=== PATIENT | female | born 1980 | race Caucasian/White ===

== ENCOUNTER 2017-01-09 12:43 | Inpatient (IN) | payer OTHER, SELFPAY ==
[~2017-01-09 12:43] MED LIST: NAPR500T2 PO; NORCOTAB PO; VARENICLINE
[2017-01-09] MEDS ORDERED: REST30CA PO (13:54)
[2017-01-09] MEDS ORDERED: LAMI25TA PO (13:54)
[2017-01-09] MEDS ORDERED: TRAZ1TAB14 PO (13:54)
[2017-01-09] MEDS ORDERED: traZODone 50 MG TAB PO ONE (20:15)
[2017-01-10] MEDS ORDERED: CALC500T49 PO (12:41)
[2017-01-10] MEDS ORDERED: POTA99TA PO (12:41)
[2017-01-10] MEDS ORDERED: IRON65TA PO (12:41)
[2017-01-10] MEDS ORDERED: EFFE37.527 PO (12:41)
[2017-01-10] MEDS ORDERED: MOM 30ML SUSPENSION UDC PO PRN (20:45)
[2017-01-10] MEDS ORDERED: POTASSIUM 99 MG PO SCH (21:00)
[2017-01-10] MEDS: FERROUS SULFATE 325MG TAB PO SCH (22:17)
[2017-01-10] MEDS: VENLAFAXINE **XR** 37.5 MG CAPSULE PO SCH (22:17)
[2017-01-10] MEDS: OYSTER SHELL CALCIUM 500 MG TAB PO SCH (22:28)
[2017-01-10] MEDS: traZODone 50 MG TAB PO PRN (22:45)
[2017-01-11 06:27] VITALS: BP 103/59
[2017-01-11] MEDS: NICOTINE 21MG/24HR 1 EA TRANSDERMAL TD SCH (08:31)
--- NOTE | 2017-01-11 10:21 | HPEPDOC ---
Medical History and Physical Date of Admission Jan 10, 2017 at 16:25 History and Physical PCP: Dr Tovar ATTENDING: Dr. David Jaramillo HPI: 36yoF admitted to COUNTS INCLUDE 234 BEDS AT THE [facility] for depressive disorder, being medically examined today. Patient was transferred from [facility] related to overdose of home medications 01/09/17, according to records it was unclear how many she took and what medications she had taken. Patient had also apparently consumed 2 wine coolers. No acute medical complaints today. Denies any fevers, chills, weakness, fatigue , HERRING, CP, SOB, cough, palpitations, abdominal pain, N/V/D or changes in bowel or bladder habits. PMHx: Anxiety Depression Insomnia Iron deficiency anemia History of obesity Asthma PSHX: Gastric bypass Right shoulder surgery 1 Lumbar laminectomy SOCHX: Resides in: [facility] Marital Status: , lives with significant other Kids: 2 biological children, 2 stepchildren and 2 foster children Employment: Unemployed Tobacco use: One pack per day ETOH: Once per month one to 2 drinks Illicit Drugs: Denies IV Drug Use: Denies Tattoos done unprofessionally: Denies FAMHX: Mother: , ovarian cancer Father: Alive, well Siblings: 3 sisters Alive, well Children: Alive, well Unexpected deaths due to medical reasons: None. ROS: As noted in HPI, otherwise 11pt ROS of systems reviewed and remarkable only for LMP unknown. PE: GEN: 36yoF, appears stated age. Well-nourished, well developed. No acute distress. Alert and oriented x 3. Pleasant, interactive. HEENT: Normocephalic, atraumatic. Pupils are equal, round, and reactive to light. Extraocular movements are intact. No nystagmus appreciated. Sclera are nonicteric. Conjunctiva without injection. Nose midline. Nasal turbinates without bogginess. EACs both patent BL. TMs both visualized and abernathy with good cone of light, no bulging or erythema. No facial asymmetry. Moist mucous membranes. Dentition fair. Pharynx pink and moist, no cobblestoning. Neck supple , trachea midline. No lymphadenopathy or thyromegaly appreciated. CHEST: Regular rate and rhythm, +S1, +S2 LUNGS: Clear to auscultation bilaterally. No wheezes, rales, or rhonchi. Breathing appears symmetric and easy. Patient is speaking in full sentences. No accessory muscle use. ABD: Round, soft, non-tender, non-distended. +Bowel sounds throughout. No rebound or guarding. No costovertebral angle tenderness. EXT: Pulses 2+ bilaterally dorsalis pedis and radial. No lower extremity edema appreciated. SKIN: [place], dry, warm. Capillary refill <2sec. No rashes. NEURO: Alert and oriented x 3. Cranial nerves III-XII are intact. No focal deficits appreciated. EKG: [facility] ST 101bpm. Labs [facility]. WBC 10.9 Hgb 13.9 HCT 42.0 PLT 246 BUN 15 SCr 0.70 Na 142 K 3.1 Cl 110 CO2 28 Gluc 118 ALT 12 AST 14 TSH 0.62 Hcg urine neg. UA unremarkable Toxicology remarkable for benzodiazepine Imaging [facility]: CXR NAD. CT head NAD. A&P: 36yoF admitted to COUNTS INCLUDE 234 BEDS AT THE [facility] for depressive disorder 1. Psych. Plan per Psychiatry. EKG on file. 2. Nicotine dependence. Patch available. 3. History of bariatric surgery. Continue calcium 500 mg at bedtime, potassium supplement 99 mg at bedtime. 4. Follow up with PCP on discharge. 5. History of iron deficiency anemia. Continue iron supplement 325 mg at bedtime. 6. Hypokalemia. Recheck CMP. Staff member Vicenta present throughout exam. Vital Signs Vital Signs Date Time Temp Pulse Resp B/P (MAP) Pulse Ox O2 Delivery O2 Flow Rate FiO2 01/11/17 08:43 Room Air 01/11/17 06:27 97.9 62 18 103/59 (74) 01/10/17 17:42 97 Home Medications Scheduled (Iron) 325 Mg Tab, 325 MG PO QHS Calcium (Calcium) 500 Mg Tab, 500 MG PO QHS Lamotrigine (Lamictal) 25 Mg Tab, 25 MG PO QHS Potassium (Potassium) 99 Mg Tab, 99 MG PO QHS Temazepam (Restoril) 30 Mg Cap, 30 MG PO QHS Trazodone HCl (Trazodone HCl) 150 Mg Tab, 150 MG PO QHS Venlafaxine Hydrochloride (Effexor Xr) 37.5 Mg Cap, 37.5 MG PO QHS Allergies Coded Allergies: No Known Drug Allergy (Verified Allergy, Unknown, 01/09/17) Kirti Torres Jan 11, 2017 10:21
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
[2017-01-11 18:06] VITALS: BP 126/67
[2017-01-11] MEDS ORDERED: TEMAZEPAM 15 MG CAP PO PRN (19:45)
[2017-01-11] MEDS: OYSTER SHELL CALCIUM 500 MG TAB PO SCH (21:58)
[2017-01-11] MEDS: VENLAFAXINE **XR** 37.5 MG CAPSULE PO SCH (21:58)
[2017-01-11] MEDS: FERROUS SULFATE 325MG TAB PO SCH (21:58)
[2017-01-11] MEDS: traZODone 50 MG TAB PO PRN (22:00)
[2017-01-11] MEDS: MAALOX 30 ML SUSP *UDC PO PRN (22:00)
[2017-01-12 06:36] VITALS: BP 105/59
--- NOTE | 2017-01-12 09:45 | MHIPNPDOC ---
[facility] Progress Note Progress Note DATE OF SERVICE: 01/12/17 HISTORY: Patient is a 36-year-old female who was transferred from [facility] after allegedly taking overdose of unknown quantity of 25 mg tablets of Lamictal in addition to other unknown psychiatric medications. ER report indicates that patient went out to smoke early Tuesday morning and when she came back was unsteady on her feet at which time her girlfriend contacted 911. Upon presenting to [facility] patient was complaining of dizziness and seeing double, indicated that she had been drinking and took unknown prescription medications to include: Trazodone, Tylenol, Pepcid, folate, misoprostol, simethicone, B12, Lamictal, Ambien. Patient also apparently texted that when released from the hospital she planned to commit suicide, also informed ER staff that if she stayed in the hospital she was going to kill herself. Patient indicates she feels her recent behavior is due to being tapered off of Lamictal due to ineffectiveness and onto Effexor by outpatient provider. Patient indicates she feels Effexor is effective and notes she abruptly discontinued her 25 mg of Lamictal approximately 5 days ago. Patient has 1 prior hospitalization at [facility] in 2013 after reporting to PCP that she had overdosed on medication. Patient notes she feels she overdosed at the time due to her reaction to Chantix. Patient endorses history of suicidal ideation, denies history of suicide attempt contrary to EMR. Helicopter Officer met with patient today to assess treatment progress on inpatient unit. Patient remains fixated on discharge, is superficially compliant and minimizes symptoms and events which preceded current hospitalization, informs sign writer letterer or painter again "I was never suicidal." Patient informs sign writer letterer or painter that her girlfriend " called the veneer jointer helper to come get my kids, I got a family member to go and get the babies but they can only keep them until 1:00 today. I'm trying to keep CPS out of the picture because I know they will take the kids away and then I will have a struggle to get them back and I don't want to have to do that because when I get out of here I just want to focus on me getting better, not have to pérez with CPS. " Patient indicates she is unsure as to plan for 2 children but states she is confident that as of 1300 today she will have no one to care for them. Patient notes older 2 children are currently staying with their biological father, adds girlfrienaldair has her 2 children in her care. Patient denies symptoms of anxiety and depression, denies suicidal and homicidal ideation, denies auditory visual hallucinations, and denies urge to engage in self-injurious behavior. Patient indicates current medication regimen works well , denies medication side effects, and denies need for dosing adjustment. Patient has not been using Restoril which she has available to her as needed. Patient states she is sleeping "fine," denies challenges with energy level or concentration and focus, indicates appetite is stable. Patient indicates she is also concerned that she will be evicted as of 01/13/17, has been made aware that creative services coordinator can work with her on communicating with care coordination manager. Patient denies symptoms of physical pain and presents with no signs of acute distress at time of interaction. cold rolling coordinator has been instructed to ensure that CPS has been made aware of the situation and is monitoring the welfare of patient's children. Patient has revoked CORTNEY for girlfriend 01/12/17 sign writer letterer or painter attempted to reach patient's outpatient prescriber, Hilaria hudson, voicemail message left requesting return telephone call. VITALS: See below NEW TEST RESULTS: No new results MEDICAL/SURGICAL HISTORY: GERD, iron deficiency anemia, history of obesity, asthma. Surgical history includes gastric bypass, right shoulder surgery, C- section 1, lumbar laminectomy Labs completed 01/09/17 at [facility] indicated elevated WBCs, neut %, , neutrophils, absolute neutrophils, chloride, and low lymph %, baso %, monocytes, potassium. [facility] imaging CXR and NAD, CT head NAD UDS completed 01/08/17 at [facility] presumptive positive for benzodiazepines HCG completed 01/08/17 at [facility] negative. Patient was educated on the risks to unborn child should she become while taking psychotropic medications and was strongly encouraged to utilize control should she elect to be sexually active with males. 01/08/17 EKG completed at [facility] sinus tachycardia otherwise normal ECG with physician no dictation of sinus tach at [address]/T changes nonacute. CURRENT MEDICATIONS: See below MENTAL STATUS EXAMINATION: General appearance: Patient is a 36-year old female, who is irritable and superficially compliant, makes fair eye contact, exhibits fair personal hygiene , is dressed in hospital clothing, ambulates with steady gait, appears stated age Speech: Of normal rate, rhythm, volume, spontaneous, coherent Thought processes: Linear, generally logical, goal-directed Thought content: Generally logical, no tangentiality or paranoia noted, no perseveration Abstract reasoning and computation: Intact Description of associations: Intact Description of abnormal or psychotic thoughts: Denies suicidal or homicidal ideation, denies auditory or visual hallucinations, does not appear to be responding to internal stimuli, does not endorse bizarre or paranoid ideation, and denies preoccupation with violence or obsessions Judgment: Poor Insight: Poor Orientation: A and O 3 Recent and remote memory: Appear intact Attention span and concentration: Appears adequate Fund of knowledge: Adequate Mood: "I feel fine, I just want to go home, I want to see my babies." Patient appears anxious and depressed, no mood lability noted Affect: Blunted, brightens at times, congruent with mood DIAGNOSES: Unspecified mood disorder, rule out major depressive disorder, recurrent, severe, rule out bipolar disorder, rule out anxiety disorder, rule out personality disorder ASSESSMENT: Patient appears to be adjusting to unit, has been visible, participating in unit activities, engages selectively, is generally pleasant and cooperative with staff, as presented with no behavior management challenges. Patient informs sign writer letterer or painter again today she feels she should be discharged, indicates she was never really suicidal, today offers explanation of "I was just mad," when asked about suicide notes and screen shots stating suicidal ideation with medication overdose. Patient's text messages also indicated that she is going to attempt overdose after being discharged from Hospital. Patient continues to minimize symptoms and events which occurred prior to hospitalization, is superficially compliant, appears to be denying all problems associated with treatment and medications so that she will be discharged. Patient is currently declining medication dosing adjustment, indicates current medication regimen works well and denies medication side effects. Patient informs sign writer letterer or painter that she believes CPS is already involved due to her attempting to commit suicide at home with 2 foster care children in her care and because girlfriend called police to have the 2 youngest children removed from the household. Patient denies current suicidal or homicidal ideation and verbalizes awareness of how to access supportive services on the unit if needed. Will continue to monitor patient's response to medications and for medication side effects and will evaluate patient safety, resolution of suicidal ideation, discharge readiness. Patient indicates when prepared for discharge she plans to return home with girlfriend and children, notes she will resume outpatient psychotherapy and medication management through [facility]. MANAGEMENT PLAN: Continue Effexor XR 37.5 mg po q hs with plan to titrate as tolerated by patient, trazodone 50 mg po hs PRN insomnia, and Restoril 30 mg po hs PRN insomnia with plan to discontinue Maintain safety precautions Patient to attend groups and participate in unit programming to develop coping strategies Engage patient in discharge planning process and arrange meeting with support system to ensure safe discharge planning when appropriate Patient to follow up with PCM upon discharge TIME SPENT: 35 minutes Vital Signs Vital Signs Date Time Temp Pulse Resp B/P (MAP) Pulse Ox O2 Delivery O2 Flow Rate FiO2 01/12/17 06:36 98.0 68 18 105/59 (74) 01/11/17 08:43 Room Air 01/10/17 17:42 97 Laboratory Data 24H Labs Laboratory Tests 2 01/12/17 09:22: Current Medications Current Medications Acetaminophen (Tylenol Tab) 650 mg Q6HP PRN PO HEADACHE or DISCOMFORT; Start at 20:45; Stop 02/09/17 at 20:44 Al Hydrox/Mg Hydrox/Simethicone (Mylanta) 30 ml Q4HP PRN PO HEARTBURN/ INDIGESTION Last administered on 01/11/17 22:00; Start 01/10/17 at 20:45; Stop 02/09/17 at 20:44 Calcium Carbonate (Oscal) 500 mg QHS PO Last administered on 01/11/17 21:58; Start 01/10/17 at 21:00; Stop 02/09/17 at 20:59 Famotidine (Pepcid) 20 mg BID PO ; Start 01/12/17 at 09:00; Stop 02/11/17 at 08: 59 Ferrous Sulfate (Ferrous Sulfate) 325 mg QHS PO Last administered on 01/11/17 21:58; Start 01/10/17 at 21:00; Stop 02/09/17 at 20:59 Home Med (Med Rec Complete!) ASDIRECTED XX ; Start 01/10/17 at 12:45; Stop at 12:46; Status DC Magnesium Hydroxide (Milk Of Magnesia) 30 ml DAILYPRN PRN PO CONSTIPATION; Start 01/10/17 at 20:45; Stop 02/09/17 at 20:44 Miscellaneous (Unresolved Patient Own Med Order) SEE LABEL COMMENTS UNRESOLVED XX ; Start 01/11/17 at 00:01; Stop 02/10/17 at 00:00 Nicotine (Nicoderm Cq 21mg) 1 patch DAILY TD ; Start 01/11/17 at 09:00; Stop at 08:59 Patient Own Medication (Patient'S Own Med) 1 ea QHS PO ; Start 01/10/17 at 21:00 ; Stop 02/09/17 at 20:59; Status UNV Temazepam (Restoril) 30 mg QHSP PRN PO INSOMNIA; Start 01/11/17 at 19:45; Stop 01/18/17 at 19:44 Trazodone HCl (Desyrel) 50 mg QHSP PRN PO INSOMNIA Last administered on 22:00; Start 01/10/17 at 20:45; Stop 02/09/17 at 20:44 Venlafaxine HCl (Effexor Xr) 37.5 mg QHS PO Last administered on 01/11/17 21:58; Start 01/10/17 at 21:00; Stop 02/09/17 at 20:59 Allergies Coded Allergies: No Known Drug Allergy (Verified Allergy, Unknown, 01/09/17) Pat Medina Jan 12, 2017 09:45
[2017-01-12] MEDS: NICOTINE 21MG/24HR 1 EA TRANSDERMAL TD SCH (09:52)
[2017-01-12] MEDS: FAMOTIDINE 20 MG TAB PO SCH ×2 (09:52→21:11)
[2017-01-12 10:03] LABS: ALBUMIN 3.7 GM/DL (3.2-5.2); ALBUMIN/GLOBULIN RATIO 1.12 (1.00-1.93); ALKALINE PHOSPHATASE 92 U/L (45-117); ALT/SGPT 17 U/L (12-78); ANION GAP 9 MEQ/L (8-16); AST/SGOT 10 U/L (15-37); BILIRUBIN,TOTAL 0.5 MG/DL (0.2-1.0); BLOOD UREA NITROGEN 13 MG/DL (7-18); CALCIUM LEVEL 9.6 MG/DL (8.5-10.1); CARBON DIOXIDE LEVEL 28 MEQ/L (21-32); CHLORIDE LEVEL 100 MEQ/L (98-107); CREATININE FOR GFR 0.74 MG/DL (0.55-1.02); GLOMERULAR FILTRATION RATE > 60.0 (>60); GLUCOSE, FASTING 100 MG/DL (70-105); POTASSIUM SERUM 3.5 MEQ/L (3.5-5.1); SODIUM LEVEL 137 MEQ/L (136-145)
[2017-01-12 18:20] VITALS: BP 124/66
[2017-01-12] MEDS: FERROUS SULFATE 325MG TAB PO SCH (21:11)
[2017-01-12] MEDS: OYSTER SHELL CALCIUM 500 MG TAB PO SCH (21:11)
[2017-01-12] MEDS: VENLAFAXINE **XR** 37.5 MG CAPSULE PO SCH (21:11)
[2017-01-12] MEDS: traZODone 50 MG TAB PO PRN (22:37)
[2017-01-12] MEDS: miSOPROStol 100 MCG TAB (S0191) PO SCH (23:10)
[2017-01-12] MEDS: POTASSIUM CHLORIDE 10 MEQ SR TABLET PO SCH (23:21)
[2017-01-13 07:03] VITALS: BP 100/60
[2017-01-13 07:19] LABS: ANION GAP 8 MEQ/L (8-16); BLOOD UREA NITROGEN 13 MG/DL (7-18); CALCIUM LEVEL 9.3 MG/DL (8.5-10.1); CARBON DIOXIDE LEVEL 28 MEQ/L (21-32); CHLORIDE LEVEL 100 MEQ/L (98-107); CREATININE FOR GFR 0.67 MG/DL (0.55-1.02); GLOMERULAR FILTRATION RATE > 60.0 (>60); GLUCOSE, FASTING 96 MG/DL (70-105); POTASSIUM SERUM 3.4 MEQ/L (3.5-5.1); SODIUM LEVEL 136 MEQ/L (136-145)
[2017-01-13] MEDS: FAMOTIDINE 20 MG TAB PO SCH ×2 (08:23→22:28)
[2017-01-13] MEDS: miSOPROStol 100 MCG TAB (S0191) PO SCH ×4 (08:23→22:28)
[2017-01-13] MEDS: NICOTINE 21MG/24HR 1 EA TRANSDERMAL TD SCH (08:24)
--- NOTE | 2017-01-13 15:01 | MHIPNPDOC ---
[facility] Progress Note Progress Note DATE OF SERVICE: 01/13/17 HISTORY: Patient is a 36-year-old female who was transferred from [facility] after allegedly taking overdose of unknown quantity of 25 mg tablets of Lamictal in addition to other unknown psychiatric medications. ER report indicates that patient went out to smoke early Tuesday morning and when she came back was unsteady on her feet at which time her girlfriend contacted 911. Upon presenting to [facility] patient was complaining of dizziness and seeing double, indicated that she had been drinking and took unknown prescription medications to include: Trazodone, Tylenol, Pepcid, folate, misoprostol, simethicone, B12, Lamictal, Ambien. Patient also apparently texted that when released from the hospital she planned to commit suicide, also informed ER staff that if she stayed in the hospital she was going to kill herself. Patient indicates she feels her recent behavior is due to being tapered off of Lamictal due to ineffectiveness, however patient was treatment noncompliant and abruptly discontinued medication. Patient states outpatient provider had begun titrating her onto Effexor. Patient has 1 prior hospitalization at [facility] in 2013 after reporting to PCP that she had overdosed on medication. Patient notes she feels she overdosed at the time due to her reaction to Chantix. Patient endorses history of suicidal ideation, denies history of suicide attempt contrary to EMR. Miner Pick met with patient today to assess treatment progress on inpatient unit. Patient remains fixated on discharge, is superficially compliant and continues to minimize symptoms and events which preceded current hospitalization. Patient contends that she never was suicidal, indicates current medication regimen is working, declines to permit proposal lead writer to make dosing adjustments. Patient indicates she struggled with sleep last night, verbalizes that she sleeps better on increased dose of trazodone, declines to permit proposal lead writer to adjust medication dose. Patient denies medication side effects. Patient states relationship with girlfriend is now over, indicates she now plans to discharge to home of girlfriend's sister where she intends to reside with her two children and 2 "babies" of whom she apparently has custody. Patient indicates she was able to arrange childhood teacher for the 2 younger children, notes they're currently staying with her sister, older children are staying with their father. Patient reports low level symptoms of anxiety and depression, denies suicidal and homicidal ideation, denies auditory visual hallucinations, and denies urge to engage in self-injurious behavior. Patient has not been using Restoril which she has available to her as needed due to patient report of being prescribed medication by outpatient provider. Patient denies challenges with energy level or concentration and focus, indicates appetite is stable. Patient denies symptoms of physical pain and presents with no signs of acute distress at time of interaction. coding coordinator indicates CPS report was attempted on 01/12/17. Patient has revoked CORTNEY for girlfriend 01/12/17 proposal lead writer attempted to reach patient's outpatient prescriber, September , voicemail message left requesting return telephone call. 01/13/17 proposal lead writer attempted to reach patient's outpatient prescriber, September , voicemail message left requesting return phone call VITALS: See below NEW TEST RESULTS: 01/13/17 labs indicated low potassium, PA is monitoring MEDICAL/SURGICAL HISTORY: GERD, iron deficiency anemia, history of obesity, asthma. Surgical history includes gastric bypass, right shoulder surgery, C- section 1, lumbar laminectomy Labs completed 01/09/17 at [facility] indicated elevated WBCs, neut %, , neutrophils, absolute neutrophils, chloride, and low lymph %, baso %, monocytes, potassium. [facility] imaging CXR and NAD, CT head NAD UDS completed 01/08/17 at [facility] presumptive positive for benzodiazepines HCG completed 01/08/17 at [facility] negative. Patient was educated on the risks to unborn child should she become while taking psychotropic medications and was strongly encouraged to utilize control should she elect to be sexually active with males. 01/08/17 EKG completed at [facility] sinus tachycardia otherwise normal ECG with physician no dictation of sinus tach at [address]/T changes nonacute. CURRENT MEDICATIONS: See below MENTAL STATUS EXAMINATION: General appearance: Patient is a 36-year old female, who is less irritable today , remains superficially compliant, makes fair eye contact, exhibits adequate personal hygiene, is dressed in hospital clothing, ambulates with steady gait, appears stated age Speech: Of normal rate, rhythm, volume, spontaneous, coherent Thought processes: Linear, generally logical, goal-directed Thought content: Generally logical, no tangentiality or paranoia noted, no perseveration Abstract reasoning and computation: Intact Description of associations: Intact Description of abnormal or psychotic thoughts: Denies suicidal or homicidal ideation, denies auditory or visual hallucinations, does not appear to be responding to internal stimuli, does not endorse bizarre or paranoid ideation, and denies preoccupation with violence or obsessions Judgment: Poor Insight: Poor Orientation: A and O 3 Recent and remote memory: Appear intact Attention span and concentration: Appears adequate Fund of knowledge: Adequate Mood: "I feel fine, I just want to go home." Patient appears less anxious, remains depressed, no mood lability noted Affect: Blunted, brightens at times, congruent with mood DIAGNOSES: Unspecified mood disorder, rule out major depressive disorder, recurrent, severe, rule out bipolar disorder, rule out anxiety disorder, rule out personality disorder ASSESSMENT: Patient appears to be adjusting to unit, has been visible, participating in unit activities, engages selectively, is generally pleasant and cooperative with staff, as presented with no behavior management challenges. Patient informs proposal lead writer again today she feels she should be discharged, indicates she was never really suicidal, Patient continues to minimize symptoms and events which occurred prior to hospitalization, is superficially compliant, appears to be denying all problems associated with treatment and medications so that she will be discharged. Patient is currently declining medication dosing adjustment, indicates current medication regimen works well and denies medication side effects. Patient denies current suicidal or homicidal ideation and verbalizes awareness of how to access supportive services on the unit if needed. Will continue to monitor patient's response to medications and for medication side effects and will evaluate patient safety, resolution of suicidal ideation, discharge readiness. Patient indicates she is aware she has been evicted by now ex-girlfriend, states new discharge plan will involve discharge to home of ex-girlfriend's sister where she plans to reside with her 4 children. Patient reiterates she intends to resume outpatient psychotherapy and medication management through [facility]. MANAGEMENT PLAN: Continue Effexor XR 37.5 mg po q hs with plan to titrate as tolerated/permitted by patient, trazodone 50 mg po hs PRN insomnia, and Restoril 30 mg po hs PRN insomnia with plan to discontinue Maintain safety precautions Patient to attend groups and participate in unit programming to develop coping strategies Engage patient in discharge planning process and arrange meeting with support system to ensure safe discharge planning when appropriate Patient to follow up with PCM upon discharge TIME SPENT: 35 minutes Vital Signs Vital Signs Date Time Temp Pulse Resp B/P (MAP) Pulse Ox O2 Delivery O2 Flow Rate FiO2 01/13/17 07:03 97.8 77 18 100/60 (73) Room Air 01/10/17 17:42 97 Laboratory Data 24H Labs Laboratory Tests 2 01/13/17 06:37: Anion Gap 8, Glomerular Filtration Rate > 60.0, Blood Urea Nitrogen 13, Creatinine 0.67, Sodium Level 136, Potassium Level 3.4L, Chloride Level 100, Carbon Dioxide Level 28, Calcium Level 9.3 CBC/BMP Laboratory Tests 01/13/17 06:37 Calcium Level 9.3 Current Medications Current Medications Acetaminophen (Tylenol Tab) 650 mg Q6HP PRN PO HEADACHE or DISCOMFORT; Start at 20:45; Stop 02/09/17 at 20:44 Al Hydrox/Mg Hydrox/Simethicone (Mylanta) 30 ml Q4HP PRN PO HEARTBURN/ INDIGESTION Last administered on 01/11/17 22:00; Start 01/10/17 at 20:45; Stop 02/09/17 at 20:44 Calcium Carbonate (Oscal) 500 mg QHS PO Last administered on 01/12/17 21:11; Start 01/10/17 at 21:00; Stop 02/09/17 at 20:59 Famotidine (Pepcid) 20 mg BID PO Last administered on 01/13/17 08:23; Start at 09:00; Stop 02/11/17 at 08:59 Ferrous Sulfate (Ferrous Sulfate) 325 mg QHS PO Last administered on 01/12/17 21:11; Start 01/10/17 at 21:00; Stop 02/09/17 at 20:59 Home Med (Med Rec Complete!) ASDIRECTED XX ; Start 01/10/17 at 12:45; Stop at 12:46; Status DC Magnesium Hydroxide (Milk Of Magnesia) 30 ml DAILYPRN PRN PO CONSTIPATION; Start 01/10/17 at 20:45; Stop 02/09/17 at 20:44 Miscellaneous (Unresolved Patient Own Med Order) SEE LABEL COMMENTS UNRESOLVED XX ; Start 01/11/17 at 00:01; Stop 01/13/17 at 09:54; Status DC Misoprostol (Cytotec) 100 mcg QID PO Last administered on 01/13/17 13:07; Start 01/12/17 at 21:00; Stop 02/11/17 at 20:59 Nicotine (Nicoderm Cq 21mg) 1 patch DAILY TD ; Start 01/11/17 at 09:00; Stop at 08:59 Patient Own Medication (Patient'S Own Med) 1 ea QHS PO ; Start 01/10/17 at 21:00 ; Stop 01/13/17 at 09:54; Status DC Potassium Chloride (Micro-K Extencaps) 10 meq QPM PO Last administered on 23:21; Start 01/12/17 at 21:00; Stop 02/11/17 at 20:59 Temazepam (Restoril) 30 mg QHSP PRN PO INSOMNIA; Start 01/11/17 at 19:45; Stop 01/18/17 at 19:44 Trazodone HCl (Desyrel) 50 mg QHSP PRN PO INSOMNIA Last administered on 22:37; Start 01/10/17 at 20:45; Stop 02/09/17 at 20:44 Venlafaxine HCl (Effexor Xr) 37.5 mg QHS PO Last administered on 01/12/17 21:11; Start 01/10/17 at 21:00; Stop 02/09/17 at 20:59 Allergies Coded Allergies: No Known Drug Allergy (Verified Allergy, Unknown, 01/09/17) Pat Medina Jan 13, 2017 15:01
[2017-01-13 18:00] VITALS: BP 112/73
[2017-01-13] MEDS: traZODone 50 MG TAB PO PRN (22:28)
[2017-01-13] MEDS: FERROUS SULFATE 325MG TAB PO SCH (22:28)
[2017-01-13] MEDS: OYSTER SHELL CALCIUM 500 MG TAB PO SCH (22:28)
[2017-01-13] MEDS: POTASSIUM CHLORIDE 10 MEQ SR TABLET PO SCH (22:28)
[2017-01-13] MEDS: VENLAFAXINE **XR** 37.5 MG CAPSULE PO SCH (22:28)
[2017-01-14 06:24] VITALS: BP 115/64
[2017-01-14 07:27] LABS: ANION GAP 7 MEQ/L (8-16); BLOOD UREA NITROGEN 9 MG/DL (7-18); CALCIUM LEVEL 9.4 MG/DL (8.5-10.1); CARBON DIOXIDE LEVEL 32 MEQ/L (21-32); CHLORIDE LEVEL 103 MEQ/L (98-107); CREATININE FOR GFR 0.78 MG/DL (0.55-1.02); GLOMERULAR FILTRATION RATE > 60.0 (>60); GLUCOSE, FASTING 82 MG/DL (70-105); POTASSIUM SERUM 4.1 MEQ/L (3.5-5.1); SODIUM LEVEL 142 MEQ/L (136-145)
[2017-01-14] MEDS: NICOTINE 21MG/24HR 1 EA TRANSDERMAL TD SCH (08:15)
[2017-01-14] MEDS: miSOPROStol 100 MCG TAB (S0191) PO SCH ×4 (08:18→22:47)
[2017-01-14] MEDS: FAMOTIDINE 20 MG TAB PO SCH ×2 (08:18→22:47)
--- NOTE | 2017-01-14 08:36 | MHIPNPDOC ---
[facility] Progress Note Progress Note DATE OF SERVICE: 01/14/17 HISTORY: day 5 of admission. Patient is a 36-year-old female who was transferred from [facility] after allegedly taking overdose of unknown quantity of 25 mg tablets of Lamictal in addition to other unknown psychiatric medications. ER report indicates that patient went out to smoke early Tuesday morning and when she came back was unsteady on her feet at which time her girlfriend contacted 911. Upon presenting to [facility] patient was complaining of dizziness and seeing double, indicated that she had been drinking and took unknown prescription medications to include: Trazodone, Tylenol, Pepcid, folate, misoprostol, simethicone, B12, Lamictal, Ambien. Patient also apparently texted that when released from the hospital she planned to commit suicide, also informed ER staff that if she stayed in the hospital she was going to kill herself. Patient indicates she feels her recent behavior is due to being tapered off of Lamictal due to ineffectiveness, however patient was treatment noncompliant and abruptly discontinued medication. Patient states outpatient provider had begun titrating her onto Effexor. Patient has [address] [facility] in 2013 after reporting to PCP that she had overdosed on medication. Patient notes she feels she overdosed at the time due to her reaction to Chantix. Patient endorses history of suicidal ideation, denies history of suicide attempt contrary to EMR. VITAL SIGNS: See below. NEW TEST RESULTS: na CURRENT MEDICATIONS: See below. MENTAL STATUS EXAMINATION: Patient is a 36-year old female, who is appears given age, superficially pleasant, dressed in hospital attire, fair eye contact. Speech: Of normal rate, rhythm, volume, spontaneous, coherent Thought processes: Linear, generally logical, goal-directed Thought content: logical Abstract reasoning and computation: Intact Description of associations: Intact Description of abnormal or psychotic thoughts: Denies suicidal or homicidal ideation, denies auditory or visual hallucinations, Judgment: Poor Insight: Poor Orientation: A and O 3 Recent and remote memory: Appear intact Attention span and concentration: Appears adequate Fund of knowledge: Adequate Mood: depressed Affect: Blunted, congruent with mood DIAGNOSES: Unspecified mood disorder, rule out major depressive disorder, recurrent, severe , rule out bipolar disorder, rule out anxiety disorder, rule out personality disorder ASSESSMENT: Patient appears to be adjusting to unit, has been visible, participating in unit activities, engages selectively, is generally pleasant and cooperative with staff. Patient is superficially compliant, appears to be denying all problems associated with treatment and medications so that she will be discharged. Patient is currently declining medication dosing adjustment, indicates current medication regimen works well and denies medication side effects. Patient denies current suicidal or homicidal ideation and verbalizes awareness of how to access supportive services on the unit if needed. Will continue to monitor patient's response to medications and for medication side effects and will evaluate patient safety, resolution of suicidal ideation, discharge readiness. Patient indicates she is aware she has been evicted by now ex-girlfriend, states new discharge plan will involve discharge to home of ex- girlfriend's sister where she plans to reside with her 4 children. Patient reiterates she intends to resume outpatient psychotherapy and medication management through [facility]. MANAGEMENT PLAN: Pt has received 4 doses of Venlafaxine at 37.5 mg. Will increase dose to 75 mg today in keeping with taper. Continue close observation. Encourage group attendance and participation with staff for discharge planning. TIME SPENT: 15 minutes. Vital Signs Vital Signs Date Time Temp Pulse Resp B/P (MAP) Pulse Ox O2 Delivery O2 Flow Rate FiO2 01/14/17 06:24 97.6 68 16 115/64 (81) 01/13/17 07:03 Room Air 01/10/17 17:42 97 Laboratory Data 24H Labs Laboratory Tests 2 01/14/17 06:26: Anion Gap 7L, Glomerular Filtration Rate > 60.0, Blood Urea Nitrogen 9, Creatinine 0.78, Sodium Level 142, Potassium Level 4.1#, Chloride Level 103, Carbon Dioxide Level 32, Calcium Level 9.4 CBC/BMP Laboratory Tests 01/14/17 06:26 Calcium Level 9.4 Current Medications Current Medications Acetaminophen (Tylenol Tab) 650 mg Q6HP PRN PO HEADACHE or DISCOMFORT; Start at 20:45; Stop 02/09/17 at 20:44 Al Hydrox/Mg Hydrox/Simethicone (Mylanta) 30 ml Q4HP PRN PO HEARTBURN/ INDIGESTION Last administered on 01/11/17t 22:00; Start 01/10/17 at 20:45; Stop 02/09/17 at 20:44 Calcium Carbonate (Oscal) 500 mg QHS PO Last administered on 01/13/17 22:28; Start 01/10/17 at 21:00; Stop 02/09/17 at 20:59 Famotidine (Pepcid) 20 mg BID PO Last administered on 01/14/17 08:18; Start at 09:00; Stop 02/11/17 at 08:59 Ferrous Sulfate (Ferrous Sulfate) 325 mg QHS PO Last administered on 01/13/17 22:28; Start 01/10/17 at 21:00; Stop 02/09/17 at 20:59 Home Med (Med Rec Complete!) ASDIRECTED XX ; Start 01/10/17 at 12:45; Stop at 12:46; Status DC Magnesium Hydroxide (Milk Of Magnesia) 30 ml DAILYPRN PRN PO CONSTIPATION; Start 01/10/17 at 20:45; Stop 02/09/17 at 20:44 Miscellaneous (Unresolved Patient Own Med Order) SEE LABEL COMMENTS UNRESOLVED XX ; Start 01/11/17 at 00:01; Stop 01/13/17 at 09:54; Status DC Misoprostol (Cytotec) 100 mcg QID PO Last administered on 01/14/17 08:18; Start 01/12/17 at 21:00; Stop 02/11/17 at 20:59 Nicotine (Nicoderm Cq 21mg) 1 patch DAILY TD ; Start 01/11/17 at 09:00; Stop at 08:59 Patient Own Medication (Patient'S Own Med) 1 ea QHS PO ; Start 01/10/17 at 21:00 ; Stop 01/13/17 at 09:54; Status DC Potassium Chloride (Micro-K Extencaps) 10 meq QPM PO Last administered on 22:28; Start 01/12/17 at 21:00; Stop 02/11/17 at 20:59 Temazepam (Restoril) 30 mg QHSP PRN PO INSOMNIA; Start 01/11/17 at 19:45; Stop 01/18/17 at 19:44 Trazodone HCl (Desyrel) 50 mg QHSP PRN PO INSOMNIA Last administered on 22:28; Start 01/10/17 at 20:45; Stop 02/09/17 at 20:44 Venlafaxine HCl (Effexor Xr) 37.5 mg QHS PO Last administered on 01/13/17t 22:28; Start 01/10/17 at 21:00; Stop 02/09/17 at 20:59 Allergies Coded Allergies: No Known Drug Allergy (Verified Allergy, Unknown, 01/09/17) Regina Sanchez Jan 14, 2017 08:36
[2017-01-14] MEDS ORDERED: VENLAFAXINE **XR** 75MG CAPSULE PO SCH (08:45)
[2017-01-14 18:00] VITALS: BP 108/62
[2017-01-14] MEDS: FERROUS SULFATE 325MG TAB PO SCH (22:46)
[2017-01-14] MEDS: OYSTER SHELL CALCIUM 500 MG TAB PO SCH (22:47)
[2017-01-14] MEDS: VENLAFAXINE **XR** 75MG CAPSULE PO SCH (22:47)
[2017-01-14] MEDS: POTASSIUM CHLORIDE 10 MEQ SR TABLET PO SCH (22:47)
[2017-01-14] MEDS: traZODone 50 MG TAB PO PRN (22:49)
[2017-01-15 06:32] VITALS: BP 114/72
[2017-01-15] MEDS: NICOTINE 21MG/24HR 1 EA TRANSDERMAL TD SCH (08:18)
[2017-01-15] MEDS: miSOPROStol 100 MCG TAB (S0191) PO SCH ×4 (08:19→22:37)
[2017-01-15] MEDS: FAMOTIDINE 20 MG TAB PO SCH ×2 (08:19→22:36)
[2017-01-15] MEDS: ACETAMINOPHEN TAB 650MG DOSE (2X325MG) PO PRN (08:19)
[2017-01-15 18:12] VITALS: BP 103/73
[2017-01-15] MEDS: MAALOX 30 ML SUSP *UDC PO PRN (19:29)
[2017-01-15] MEDS: traZODone 50 MG TAB PO PRN (22:36)
[2017-01-15] MEDS: FERROUS SULFATE 325MG TAB PO SCH (22:36)
[2017-01-15] MEDS: POTASSIUM CHLORIDE 10 MEQ SR TABLET PO SCH (22:36)
[2017-01-15] MEDS: OYSTER SHELL CALCIUM 500 MG TAB PO SCH (22:37)
[2017-01-15] MEDS: VENLAFAXINE **XR** 75MG CAPSULE PO SCH (22:37)
[2017-01-16 06:02] VITALS: BP 107/55
[2017-01-16] MEDS: FAMOTIDINE 20 MG TAB PO SCH ×2 (08:18→20:25)
[2017-01-16] MEDS: miSOPROStol 100 MCG TAB (S0191) PO SCH ×4 (08:18→20:25)
[2017-01-16] MEDS: NICOTINE 21MG/24HR 1 EA TRANSDERMAL TD SCH (08:19)
[2017-01-16 18:19] VITALS: BP 107/63
[2017-01-16] MEDS: POTASSIUM CHLORIDE 10 MEQ SR TABLET PO SCH (20:25)
[2017-01-16] MEDS: OYSTER SHELL CALCIUM 500 MG TAB PO SCH (20:25)
[2017-01-16] MEDS: VENLAFAXINE **XR** 75MG CAPSULE PO SCH (20:25)
[2017-01-16] MEDS: FERROUS SULFATE 325MG TAB PO SCH (20:25)
[2017-01-16] MEDS: ACETAMINOPHEN TAB 650MG DOSE (2X325MG) PO PRN (20:26)
[2017-01-16] MEDS: MAALOX 30 ML SUSP *UDC PO PRN (20:27)
[2017-01-16] MEDS: AUGMENTIN 875 MG TAB PO SCH (21:37)
[2017-01-16] MEDS: traZODone 50 MG TAB PO PRN (23:04)
[2017-01-17 06:36] VITALS: BP 121/63
[2017-01-17] MEDS: FAMOTIDINE 20 MG TAB PO SCH ×2 (08:11→21:47)
[2017-01-17] MEDS: AUGMENTIN 875 MG TAB PO SCH ×2 (08:11→21:47)
[2017-01-17] MEDS: miSOPROStol 100 MCG TAB (S0191) PO SCH ×4 (08:11→21:47)
[2017-01-17] MEDS: NICOTINE 21MG/24HR 1 EA TRANSDERMAL TD SCH (08:12)
[2017-01-17] MEDS: ACETAMINOPHEN TAB 650MG DOSE (2X325MG) PO PRN (14:38)
--- NOTE | 2017-01-17 16:05 | MHIPNPDOC ---
[facility] Progress Note Progress Note DATE OF SERVICE: 01/17/17 HISTORY: Patient is a 36-year-old female who was transferred from [facility] after allegedly taking overdose of unknown quantity of 25 mg tablets of Lamictal in addition to other unknown psychiatric medications. ER report indicates that patient went out to smoke early Tuesday morning and when she came back was unsteady on her feet at which time her girlfriend contacted 911. Upon presenting to [facility] patient was complaining of dizziness and seeing double, indicated that she had been drinking and took unknown prescription medications to include: Trazodone, Tylenol, Pepcid, folate, misoprostol, simethicone, B12, Lamictal, Ambien. Patient also apparently texted that when released from the hospital she planned to commit suicide, also informed ER staff that if she stayed in the hospital she was going to kill herself. Patient indicates she feels her recent behavior is due to being tapered off of Lamictal due to ineffectiveness, however patient was treatment noncompliant and abruptly discontinued medication. Patient states outpatient provider had begun titrating her onto Effexor. Patient has 1 prior hospitalization at [facility] in 2013 after reporting to PCP that she had overdosed on medication. Patient notes she feels she overdosed at the time due to her reaction to Chantix. Patient endorses history of suicidal ideation, denies history of suicide attempt contrary to EMR. Obstetrical Anesthesiologist met with patient today to assess treatment progress on inpatient unit. Patient remains fixated on discharge, is somewhat less superficially compliant today and verbalizes some insight into impact of events and behavior which preceded current hospitalization. Patient notes to principal technical writer that she has concerns about her behavior on her children and states, "I would never do anything like that to them, I don't want them to not have a mother and they mean the world to me." Patient verbalizes increased insight in terms of coping mechanisms, and she feels able to cope with current life stressors, denies experiencing animosity toward ex-girlfriend and feels she has come to terms with termination of relationship. Patient indicates current medication regimen is working well, denies need for dosing adjustment, denies medication side effects. Patient reports current anxiety level of 1/10, depression 1/10, denies suicidal and homicidal ideation, denies auditory and visual hallucinations, denies urge to engage in self-injurious behavior. Patient reports she is sleeping better, denies nightmares, denies need for Restoril for sleep and indicates she plans to not request medication refill from outpatient provider. Patient reports improvement in energy level, denies challenges with appetite or concentration and focus. Patient denies pain and presents with no signs of acute distress at time of interaction. 01/17/17 Obstetrical Anesthesiologist spoke with nurse, Jacob, for provider Hilaria richmond, to inform of patient's recent overdose on multiple psychotropic medications, discontinuation of Restoril while in the inpatient setting, diagnosis and treatment information, and impending discharge. salon coordinator indicates CPS report was attempted on 01/12/17. 01/12/17 principal technical writer attempted to reach patient's outpatient prescriber, September yi , voicemail message left requesting return telephone call. 01/13/17 principal technical writer attempted to reach patient's outpatient prescriber, September yi , voicemail message left requesting return phone call VITALS: See below NEW TEST RESULTS: 01/13/17 labs indicated low potassium, PA is monitoring MEDICAL/SURGICAL HISTORY: GERD, iron deficiency anemia, history of obesity, asthma. Surgical history includes gastric bypass, right shoulder surgery, C- section 1, lumbar laminectomy Labs completed 01/09/17 at [facility] indicated elevated WBCs, neut %, , neutrophils, absolute neutrophils, chloride, and low lymph %, baso %, monocytes, potassium. [facility] imaging CXR and NAD, CT head NAD UDS completed 01/08/17 at [facility] presumptive positive for benzodiazepines HCG completed 01/08/17 at [facility] negative. Patient was educated on the risks to unborn child should she become while taking psychotropic medications and was strongly encouraged to utilize control should she elect to be sexually active with males. 01/08/17 EKG completed at [facility] sinus tachycardia otherwise normal ECG with physician no dictation of sinus tach at [address]/T changes nonacute. CURRENT MEDICATIONS: See below MENTAL STATUS EXAMINATION: General appearance: Patient is a 36-year old female, who is pleasant and cooperative, is less superficially compliant today, makes adequate eye contact, exhibits adequate personal hygiene, is dressed in hospital clothing, ambulates with steady gait, appears stated age Speech: Of normal rate, rhythm, volume, spontaneous, coherent Thought processes: Linear, generally logical, goal-directed Thought content: Logical, no tangentiality or paranoia noted, no perseveration Abstract reasoning and computation: Intact Description of associations: Intact Description of abnormal or psychotic thoughts: Denies suicidal or homicidal ideation, denies auditory or visual hallucinations, does not appear to be responding to internal stimuli, does not endorse bizarre or paranoid ideation, and denies preoccupation with violence or obsessions Judgment: Limited, some improvement noted during treatment Insight: Limited, some improvement noted during treatment Orientation: A and O 3 Recent and remote memory: Appear intact Attention span and concentration: Appears adequate Fund of knowledge: Adequate Mood: "I feel a lot better, I feel ready to go home and be with my children." Patient appears less anxious, less depressed, no mood lability noted Affect: Mild constriction, brightens, congruent with mood DIAGNOSES: Unspecified mood disorder, rule out major depressive disorder, recurrent, severe, rule out bipolar disorder, rule out anxiety disorder, rule out personality disorder ASSESSMENT: Patient appears to be adjusting to unit, has been visible, participating in unit activities, engages selectively, is pleasant and cooperative with staff, as presented with no behavior management challenges. Patient informs principal technical writer again today she feels she should be discharged, does not minimize symptoms or if events today which occurred prior to hospitalization, is more genuine in her interactions, exhibits increased insight in terms of the importance of following through with outpatient treatment and the potential impact of her behavior on her children. Patient indicates increased dose of Effexor XR is effective, states medication regimen is working well and she denies medication side effects. Patient denies suicidal or homicidal ideation and verbalizes awareness of how to access supportive services on the unit if needed. Will continue to monitor patient's response to medications and for medication side effects and will evaluate patient safety and discharge readiness. Patient indicates she is aware she has been evicted by now ex- girlfriend, states she has come to terms with the fact that the relationship is over, states she plans to discharge to home of friend where she plans to reside with her 4 children. Patient reiterates she intends to resume outpatient psychotherapy and medication management through [facility]. Patient is aware that discharge has been tentatively scheduled for tomorrow morning and is in agreement with discharge plan. salon coordinator indicates she has communicated with friend, Simona, with whom patient will be staying after discharge and friend has indicated medications will be secured and all unnecessary medications will be removed from the home. Friend has also indicated she has no concerns related to patient' s discharge to her home and believes patient has stabilized in inpatient environment and is prepared for discharge. MANAGEMENT PLAN: Continue Effexor XR 75 mg po q hs, trazodone 50 mg po hs PRN insomnia. Discontinue Restoril 30 mg po hs PRN insomnia Maintain safety precautions Patient to attend groups and participate in unit programming to develop coping strategies Engage patient in discharge planning process and arrange meeting with support system to ensure safe discharge planning when appropriate Patient to follow up with PCM upon discharge TIME SPENT: 35 minutes Vital Signs Vital Signs Date Time Temp Pulse Resp B/P (MAP) Pulse Ox O2 Delivery O2 Flow Rate FiO2 01/17/17 06:36 97.5 67 18 121/63 (82) 01/13/17 07:03 Room Air Current Medications Current Medications Acetaminophen (Tylenol Tab) 650 mg Q6HP PRN PO HEADACHE or DISCOMFORT Last administered on 01/17/17 14:38; Start 01/10/17 at 20:45; Stop 02/09/17 at 20:44 Al Hydrox/Mg Hydrox/Simethicone (Mylanta) 30 ml Q4HP PRN PO HEARTBURN/ INDIGESTION Last administered on 01/16/17 20:27; Start 01/10/17 at 20:45; Stop 02/09/17 at 20:44 Amoxicillin/ Clavulanate Potassium (Augmentin) 875 mg BID PO Last administered on 01/17/17 08:11; Start 01/16/17 at 21:00; Stop 01/26/17 at 20:59 Calcium Carbonate (Oscal) 500 mg QHS PO Last administered on 01/16/17 20:25; Start 01/10/17 at 21:00; Stop 02/09/17 at 20:59 Famotidine (Pepcid) 20 mg BID PO Last administered on 01/17/17 08:11; Start at 09:00; Stop 02/11/17 at 08:59 Ferrous Sulfate (Ferrous Sulfate) 325 mg QHS PO Last administered on 01/16/17 20:25; Start 01/10/17 at 21:00; Stop 02/09/17 at 20:59 Home Med (Med Rec Complete!) ASDIRECTED XX ; Start 01/10/17 at 12:45; Stop at 12:46; Status DC Magnesium Hydroxide (Milk Of Magnesia) 30 ml DAILYPRN PRN PO CONSTIPATION; Start 01/10/17 at 20:45; Stop 02/09/17 at 20:44 Miscellaneous (Unresolved Patient Own Med Order) SEE LABEL COMMENTS UNRESOLVED XX ; Start 01/11/17 at 00:01; Stop 01/13/17 at 09:54; Status DC Misoprostol (Cytotec) 100 mcg QID PO Last administered on 01/17/17 12:11; Start 01/12/17 at 21:00; Stop 02/11/17 at 20:59 Nicotine (Nicoderm Cq 21mg) 1 patch DAILY TD ; Start 01/11/17 at 09:00; Stop at 08:59 Patient Own Medication (Patient'S Own Med) 1 ea QHS PO ; Start 01/10/17 at 21:00 ; Stop 01/13/17 at 09:54; Status DC Potassium Chloride (Micro-K Extencaps) 10 meq QPM PO Last administered on 20:25; Start 01/12/17 at 21:00; Stop 02/11/17 at 20:59 Temazepam (Restoril) 30 mg QHSP PRN PO INSOMNIA; Start 01/11/17 at 19:45; Stop 01/18/17 at 19:44 Trazodone HCl (Desyrel) 50 mg QHSP PRN PO INSOMNIA Last administered on 23:04; Start 01/10/17 at 20:45; Stop 02/09/17 at 20:44 Venlafaxine HCl (Effexor Xr) 37.5 mg QHS PO Last administered on 01/13/17 22:28; Start 01/10/17 at 21:00; Stop 01/14/17 at 08:35; Status DC Venlafaxine HCl (Effexor Xr) 75 mg QHS PO ; Start 01/14/17 at 08:45; Stop at 08:56; Status DC Venlafaxine HCl (Effexor Xr) 75 mg QHS PO Last administered on 01/16/17 20 :25; Start 01/14/17 at 21:00; Stop 02/13/17 at 20:59 Allergies Coded Allergies: No Known Drug Allergy (Verified Allergy, Unknown, 01/09/17) Pat Medina Jan 17, 2017 16:05
[2017-01-17 18:00] VITALS: BP 105/58
--- NOTE | 2017-01-17 21:38 | MHIPN ---
DATE: 01/16/2017 She is a 36-year-old female patient on the inpatient mental health unit who was complaining of a right ear pain. She has had it for two days. No relief with Tylenol, No fevers or chills. No decreased hearing, just an earache. PHYSICAL EXAM: Temperature 99. Blood pressure 107/60. Pulse: 64. Respirations: 16. Patient is alert and oriented times three. Tympanic membrane right is red and injected and left is pearly. Pupils equal and reactive to light. Extraocular muscles intact. Cornea, sclera is clear. Conjunctiva is normal. No facial asymmetry. Pharynx is pink and moist. Tongue is midline. Neck is supple without lymphadenopathy, thyromegaly and no goiter. Chest is clear to auscultation without wheezes or retraction. Heart is regular. Abdomen is benign. Bowel sounds are positive. Extremities have no signs of clubbing or edema. Skin is warm and dry. IMPRESSION: Right otitis media. PLAN: Augmentin 875 1 by mouth twice a day take with food times 10 days increase fluid by mouth MTDD
[2017-01-17] MEDS: traZODone 50 MG TAB PO PRN (21:47)
[2017-01-17] MEDS: VENLAFAXINE **XR** 75MG CAPSULE PO SCH (21:47)
[2017-01-17] MEDS: FERROUS SULFATE 325MG TAB PO SCH (21:47)
[2017-01-17] MEDS: OYSTER SHELL CALCIUM 500 MG TAB PO SCH (21:47)
[2017-01-17] MEDS: POTASSIUM CHLORIDE 10 MEQ SR TABLET PO SCH (21:48)
[2017-01-18 06:00] VITALS: BP 111/60
[2017-01-18] MEDS: FAMOTIDINE 20 MG TAB PO SCH (08:10)
[2017-01-18] MEDS: AUGMENTIN 875 MG TAB PO SCH (08:10)
[2017-01-18] MEDS: miSOPROStol 100 MCG TAB (S0191) PO SCH (08:10)
[2017-01-18] MEDS: NICOTINE 21MG/24HR 1 EA TRANSDERMAL TD SCH (08:10)
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
[2017-01-18] MEDS ORDERED: VENL75CA2 PO (09:16)
[2017-01-18] MEDS ORDERED: TRAZO50TA PO (09:16)
[2017-01-18] MEDS ORDERED: NICO21PAT TD (10:36)
[2017-01-18] MEDS ORDERED: AMOX875T2 PO (10:36)
[2017-01-18] MEDS ORDERED: FAMO20TA PO (10:36)
[2017-01-18] MEDS ORDERED: CYTO100T PO (10:44)
== END 2017-01-18 11:00 | disposition home or self-care (01) | DRG 753 ==
LOC: EDBD 12:43 → M ED 13:19 → M ED INP 01-10 16:25 → M PSY 01-10 17:58
PROVIDERS: ADMIT Psychiatry & Neurology Psychiatry; ATTEND Psychiatry & Neurology Psychiatry
DX: F39 Unspecified mood [affective] disorder (principal); F33.2 Major depressive disorder, recurrent severe without psychotic features; F41.9 Anxiety disorder, unspecified; F17.210 Nicotine dependence, cigarettes, uncomplicated; E87.6 Hypokalemia; D50.9 Iron deficiency anemia, unspecified; Z91.19 Patient's noncompliance with other medical treatment and regimen; F60.9 Personality disorder, unspecified; K21.9 Gastro-esophageal reflux disease without esophagitis; G47.00 Insomnia, unspecified; H66.91 Otitis media, unspecified, right ear; J45.909 Unspecified asthma, uncomplicated; Z98.84 Bariatric surgery status; Z91.5 Personal history of self-harm; Z79.899 Other long term (current) drug therapy

== ENCOUNTER 2019-02-14 01:00 | Inpatient (IN) | payer MEDICAID, OTHER ==
[~2019-02-14] VITALS: Ht 170.2 cm; Wt 68.9 kg
[~2019-02-14 01:00] MED LIST changes: +AMOX875T2 PO; +CALC500T49 PO; +CYTO100T PO; +EFFE37.5 PO; +FAMO20TA PO; +IRON65TA PO; +LAMI25TA PO; +NICO21PAT TD; +POTA99TA PO; +REST30CA PO; +TRAZ1TAB10 PO; +TRAZ1TAB14 PO; +VENL75CA2 PO
[2019-02-14 01:16] LABS: HEMATOCRIT 35.6 % (36.0-47.0); HEMOGLOBIN 10.6 g/dl (12.0-15.5); MEAN CORPUSCULAR HEMOGLOBIN 22.7 pg (27.0-33.0); MEAN CORPUSCULAR HGB CONC 29.8 g/dl (32.0-36.5); MEAN CORPUSCULAR VOLUME 76.4 fl (80.0-96.0); PLATELET COUNT, AUTOMATED 425 10^3/uL (150-450); RED BLOOD COUNT 4.66 10^6/uL (4.00-5.40); WHITE BLOOD COUNT 8.8 10^3/uL (4.0-10.0)
[2019-02-14 01:44] LABS: AMPHETAMINES LEVEL URINE NEGATIVE (NEGATIVE); BARBITURATES URINE NEGATIVE (NEGATIVE); BENZODIAZEPINES URINE NEGATIVE (NEGATIVE); CANNABINOIDS URINE NEGATIVE (NEGATIVE); COCAINE METABOLITE URINE NEGATIVE (NEGATIVE); METHADONE URINE NEGATIVE (NEGATIVE); OPIATES URINE NEGATIVE (NEGATIVE); PHENCYCLIDINE URINE NEGATIVE (NEGATIVE)
[2019-02-14 01:55] LABS: ACETAMINOPHEN LEVEL < 2.0 UG/ML (10.0-30.0); ALBUMIN 3.6 GM/DL (3.2-5.2); ALT/SGPT 14 U/L (12-78); BILIRUBIN,DIRECT < 0.1 MG/DL (0.0-0.2); BILIRUBIN,TOTAL 0.2 MG/DL (0.2-1.0); BLOOD UREA NITROGEN 9 MG/DL (7-18); CALCIUM LEVEL 8.5 MG/DL (8.5-10.1); CARBON DIOXIDE LEVEL 21 MEQ/L (21-32); CHLORIDE LEVEL 107 MEQ/L (98-107); CREATININE FOR GFR 0.71 MG/DL (0.55-1.30); ETHYL ALCOHOL (ETHANOL) 0.171 % (0.000-0.010); GLOMERULAR FILTRATION RATE > 60.0 (>60); GLUCOSE, FASTING 94 MG/DL (70-100); POTASSIUM SERUM 4.2 MEQ/L (3.5-5.1); SALICYLATE LEVEL 4.7 MG/DL (5.0-30.0); SODIUM LEVEL 136 MEQ/L (136-145); THYROID STIMULATING HORMONE 0.583 uIU/ML (0.358-3.740); TOTAL PROTEIN 7.2 GM/DL (6.4-8.2)
[2019-02-14] MEDS ORDERED: LORazepam 0.5 MG TAB PO ONE ×2 (03:45→06:30)
--- NOTE | 2019-02-14 05:45 | ECGEPIP ---
[facility] - ED Test Date: 2019-02-14 Pat Name: ELLEN ZAZUETA Department: Room: - Gender: Female Furniture Mover Driver: lazaro : 1980 Requested By: CYNDY Salgado Order Number: [id number] Reading MD: Phil Smith Measurements Intervals Dow Rate: 93 P: 57 MA: 149 QRS: 48 QRSD: 87 T: 53 QT: 376 QTc: 469 Interpretive Statements SINUS RHYTHM NO PRIORS FOR COMPARISON Electronically Signed on 02-14-2019 5:44:40 EDT by Phil Smith
[2019-02-14] MEDS ORDERED: CHAN1PAK13 PO (06:31)
[2019-02-14] MEDS ORDERED: LATU40TA PO (06:31)
[2019-02-14] MEDS ORDERED: VITA500T41 PO (06:31)
[2019-02-14] MEDS ORDERED: HM P99TA PO (06:31)
[2019-02-14] MEDS ORDERED: GABA600T4 PO (06:31)
[2019-02-14] MEDS ORDERED: TRAZ-252 PO (06:31)
[2019-02-14] MEDS ORDERED: PROAAER10 INH (06:31)
[2019-02-14] MEDS ORDERED: CALC500T44 PO (06:31)
[2019-02-14] MEDS ORDERED: SERO50TA PO (06:31)
[2019-02-14] MEDS ORDERED: PRAZ1CAP PO (09:32)
[2019-02-14] MEDS ORDERED: TIZA4TAB4 PO (09:32)
[2019-02-14] MEDS ORDERED: MOM 30ML SUSPENSION UDC PO PRN (14:30)
[2019-02-14] MEDS ORDERED: MAALOX 30 ML SUSP *UDC PO PRN (14:30)
[2019-02-14] MEDS ORDERED: LORazepam 2 MG TAB PO PRN (14:30)
[2019-02-14 15:23] VITALS: BP 127/59
[2019-02-14 16:08] VITALS: BP 127/59
[2019-02-14 17:44] VITALS: BP 146/95
[2019-02-14] MEDS: FOLIC ACID 1 MG TAB PO SCH (18:12)
[2019-02-14] MEDS: THIAMINE 100 MG TAB PO SCH ×2 (18:12→21:05)
[2019-02-14] MEDS: MULTIVITAMINS/MINERALS THERAP 1 TAB PO SCH (18:12)
[2019-02-14] MEDS: VARENICLINE 1 MG TABLET PO SCH (21:04)
[2019-02-14] MEDS: GABAPENTIN 300 MG CAP PO SCH (21:04)
[2019-02-14] MEDS ORDERED: hydrOXYzine 25 MG TAB PO PRN (21:30)
[2019-02-15 06:39] VITALS: BP 108/58
[2019-02-15 08:19] VITALS: BP 116/62
[2019-02-15] MEDS ORDERED: NICOTINE 21MG/24HR 1 EA TRANSDERMAL TD SCH (09:00)
[2019-02-15] MEDS: FOLIC ACID 1 MG TAB PO SCH (09:28)
[2019-02-15] MEDS: THIAMINE 100 MG TAB PO SCH ×2 (09:28→20:33)
[2019-02-15] MEDS: MULTIVITAMINS/MINERALS THERAP 1 TAB PO SCH (09:28)
[2019-02-15] MEDS: VARENICLINE 1 MG TABLET PO SCH (09:28)
[2019-02-15] MEDS: GABAPENTIN 300 MG CAP PO SCH ×3 (09:28→20:33)
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
[2019-02-15] MEDS: hydrOXYzine 50 MG TAB PO PRN (15:17)
[2019-02-15 15:19] VITALS: BP 121/83
[2019-02-15 18:00] VITALS: BP 121/83
[2019-02-15] MEDS ORDERED: LURASIDONE HCL 40 MG TAB (LATUDA) PO SCH (18:00)
[2019-02-15] MEDS: LURASIDONE HCL 40 MG TAB (LATUDA) PO SCH (18:07)
[2019-02-15] MEDS: traZODone 50 MG TAB PO PRN (20:33)
[2019-02-15 22:00] VITALS: BP 120/80
[2019-02-16 06:37] VITALS: BP 95/61
[2019-02-16 07:38] VITALS: BP 102/68
[2019-02-16] MEDS: FOLIC ACID 1 MG TAB PO SCH (09:04)
[2019-02-16] MEDS: MULTIVITAMINS/MINERALS THERAP 1 TAB PO SCH (09:04)
[2019-02-16] MEDS: LURASIDONE HCL 40 MG TAB (LATUDA) PO SCH ×2 (09:04→18:07)
[2019-02-16] MEDS: GABAPENTIN 300 MG CAP PO SCH ×3 (09:04→21:09)
[2019-02-16] MEDS: THIAMINE 100 MG TAB PO SCH ×2 (09:04→21:09)
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
[2019-02-16 16:03] VITALS: BP 106/67
[2019-02-16 17:51] VITALS: BP 106/67
[2019-02-16] MEDS: traZODone 50 MG TAB PO PRN (21:09)
[2019-02-17 07:19] VITALS: BP 103/62
[2019-02-17] MEDS: ACETAMINOPHEN TAB 650MG DOSE (2X325MG) PO PRN (09:34)
[2019-02-17] MEDS: MULTIVITAMINS/MINERALS THERAP 1 TAB PO SCH (09:34)
[2019-02-17] MEDS: FOLIC ACID 1 MG TAB PO SCH (09:35)
[2019-02-17] MEDS: GABAPENTIN 300 MG CAP PO SCH ×3 (09:35→21:19)
[2019-02-17] MEDS: LURASIDONE HCL 40 MG TAB (LATUDA) PO SCH ×2 (09:35→17:59)
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
[2019-02-17 17:56] VITALS: BP 111/66
[2019-02-17] MEDS: traZODone 50 MG TAB PO PRN (21:19)
[2019-02-18] MEDS: ACETAMINOPHEN TAB 650MG DOSE (2X325MG) PO PRN (06:11)
[2019-02-18 06:31] VITALS: BP 114/56
[2019-02-18] MEDS: FOLIC ACID 1 MG TAB PO SCH (09:01)
[2019-02-18] MEDS: GABAPENTIN 300 MG CAP PO SCH ×3 (09:01→21:08)
[2019-02-18] MEDS: LURASIDONE HCL 40 MG TAB (LATUDA) PO SCH ×2 (09:01→17:59)
[2019-02-18] MEDS: MULTIVITAMINS/MINERALS THERAP 1 TAB PO SCH (09:01)
[2019-02-18 17:43] VITALS: BP 112/61
[2019-02-18] MEDS: traZODone 50 MG TAB PO PRN (21:07)
[2019-02-19] MEDS: hydrOXYzine 50 MG TAB PO PRN (06:35)
[2019-02-19] MEDS: ACETAMINOPHEN TAB 650MG DOSE (2X325MG) PO PRN (06:36)
[2019-02-19 06:43] VITALS: BP 132/74
[2019-02-19] MEDS: FOLIC ACID 1 MG TAB PO SCH (08:53)
[2019-02-19] MEDS: GABAPENTIN 300 MG CAP PO SCH ×3 (08:53→21:55)
[2019-02-19] MEDS: MULTIVITAMINS/MINERALS THERAP 1 TAB PO SCH (08:53)
[2019-02-19] MEDS: LURASIDONE HCL 40 MG TAB (LATUDA) PO SCH ×2 (08:53→17:21)
[2019-02-19 17:00] VITALS: BP 116/67
[2019-02-19] MEDS: traZODone 50 MG TAB PO PRN (21:55)
[2019-02-20 06:50] VITALS: BP 103/58
[2019-02-20] MEDS: MULTIVITAMINS/MINERALS THERAP 1 TAB PO SCH (08:00)
[2019-02-20] MEDS: LURASIDONE HCL 40 MG TAB (LATUDA) PO SCH (08:00)
[2019-02-20] MEDS: FOLIC ACID 1 MG TAB PO SCH (08:00)
[2019-02-20] MEDS: GABAPENTIN 300 MG CAP PO SCH (08:00)
[2019-02-20] MEDS ORDERED: LATU40TA PO (10:10)
[2019-02-20] MEDS ORDERED: TRAZ-252 PO (10:10)
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
== END 2019-02-20 11:08 | disposition home or self-care (01) | DRG 751 ==
LOC: M ED 01:00 → M ED INP 14:25 → M PSY 15:40
PROVIDERS: ADMIT Psychiatry & Neurology Addiction Medicine; ATTEND Psychiatry & Neurology Psychiatry
DX: F33.2 Major depressive disorder, recurrent severe without psychotic features (principal); F10.10 Alcohol abuse, uncomplicated; F41.9 Anxiety disorder, unspecified; Z59.8 Other problems related to housing and economic circumstances; Z79.899 Other long term (current) drug therapy; Z91.040 Latex allergy status; Z91.041 Radiographic dye allergy status; M54.5 Low back pain; R45.851 Suicidal ideations

== ENCOUNTER 2019-06-03 17:22 | Inpatient (IN) | payer MEDICAID, OTHER ==
[~2019-06-03] VITALS: Ht 170.2 cm; Wt 63.6 kg
[~2019-06-03 17:22] MED LIST changes: +CALC500T44 PO; +CHAN1PAK13 PO; +GABA600T4 PO; +HM P99TA PO; +LATU40TA PO; +PRAZ1CAP PO; +PROAAER10 INH; +SERO50TA PO; +TIZA4TAB4 PO; +TRAZ-252 PO; +VITA500T41 PO
[2019-06-03] MEDS ORDERED: SERO50TA PO (18:53)
[2019-06-03] MEDS ORDERED: DEPA1TAB PO (18:53)
[2019-06-03 18:56] LABS: HEMATOCRIT 37.1 % (36.0-47.0); HEMOGLOBIN 10.4 g/dl (12.0-15.5); MEAN CORPUSCULAR HEMOGLOBIN 20.5 pg (27.0-33.0); PLATELET COUNT, AUTOMATED 417 10^3/uL (150-450); RED BLOOD COUNT 5.08 10^6/uL (4.00-5.40); WHITE BLOOD COUNT 8.4 10^3/uL (4.0-10.0)
[2019-06-03 19:23] LABS: HCG, SERUM QUALITATIVE NEGATIVE (NEGATIVE)
[2019-06-03 19:27] LABS: ACETAMINOPHEN LEVEL < 2.0 UG/ML (10.0-30.0); ALBUMIN 3.5 GM/DL (3.2-5.2); ALT/SGPT 15 U/L (12-78); BILIRUBIN,DIRECT < 0.1 MG/DL (0.0-0.2); BILIRUBIN,TOTAL 0.3 MG/DL (0.2-1.0); BLOOD UREA NITROGEN 7 MG/DL (7-18); CALCIUM LEVEL 8.7 MG/DL (8.5-10.1); CARBON DIOXIDE LEVEL 27 MEQ/L (21-32); CHLORIDE LEVEL 105 MEQ/L (98-107); CREATININE FOR GFR 0.79 MG/DL (0.55-1.30); ETHYL ALCOHOL (ETHANOL) 0.154 % (0.000-0.010); GLOMERULAR FILTRATION RATE > 60.0 (>60); GLUCOSE, FASTING 94 MG/DL (70-100); POTASSIUM SERUM 4.6 MEQ/L (3.5-5.1); SALICYLATE LEVEL 5.3 MG/DL (5.0-30.0); SODIUM LEVEL 139 MEQ/L (136-145); THYROID STIMULATING HORMONE 0.998 uIU/ML (0.358-3.740); TOTAL PROTEIN 7.4 GM/DL (6.4-8.2)
[2019-06-04 02:42] LABS: AMPHETAMINES LEVEL URINE NEGATIVE (NEGATIVE); BARBITURATES URINE NEGATIVE (NEGATIVE); BENZODIAZEPINES URINE NEGATIVE (NEGATIVE); CANNABINOIDS URINE NEGATIVE (NEGATIVE); COCAINE METABOLITE URINE NEGATIVE (NEGATIVE); METHADONE URINE NEGATIVE (NEGATIVE); OPIATES URINE NEGATIVE (NEGATIVE); PHENCYCLIDINE URINE NEGATIVE (NEGATIVE)
[2019-06-04] MEDS: CYANOCOBALAMIN 500 MCG TAB PO SCH (09:33)
[2019-06-04] MEDS: DIVALPROEX 125 MG TAB PO SCH ×3 (09:33→21:58)
[2019-06-04] MEDS ORDERED: traZODone 50 MG TAB PO PRN (12:45)
[2019-06-04] MEDS ORDERED: OLANZapine ORAL DISINTEGRATING TAB 5MG PO PRN (12:45)
[2019-06-04] MEDS ORDERED: MOM 30ML SUSPENSION UDC PO PRN (12:45)
[2019-06-04] MEDS ORDERED: ACETAMINOPHEN TAB 650MG DOSE (2X325MG) PO PRN (12:45)
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
[2019-06-04 14:10] VITALS: BP 132/81
[2019-06-04 17:04] VITALS: BP 131/81
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
[2019-06-05 06:34] VITALS: BP 105/58
[2019-06-05] MEDS: CYANOCOBALAMIN 500 MCG TAB PO SCH (08:47)
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
[2019-06-05] MEDS ORDERED: GABA600T4 PO (14:20)
[2019-06-05] MEDS ORDERED: DEPA1TAB PO (14:20)
[2019-06-05] MEDS ORDERED: PRAZ1CAP PO (14:20)
[2019-06-05] MEDS ORDERED: SERO50TA PO (14:20)
--- NOTE | 2019-06-05 14:20 | MHDSPDOC ---
[facility] Discharge Summary Discharge Summary DATE OF ADMISSION: Jun 04, 2019 at 12:36 DATE OF DISCHARGE: 06/05/19 Please see h/p for clinical course, dx and other information for a same day discharge Vital Signs/I&Os Vital Signs Date Time Temp Pulse Resp B/P (MAP) Pulse Ox O2 Delivery O2 Flow Rate FiO2 06/05/19 08:54 Room Air 06/05/19 06:34 98.3 71 18 105/58 (74) 06/04/19 14:10 98 Medications Scheduled Calcium Carbonate/Vitamin D3 (Calcium 500-Vit D3 200 Tablet) 1 Each Tablet, 1 T AB PO DAILY, (Reported) Cyanocobalamin (Vitamin B-12) (Vitamin B-12) 500 Mcg Tablet, 500 MCG PO DAILY, (Reported) Divalproex Sodium (Depakote) 125 Mg Tablet.dr, 125 MG PO BID for mood for 7 Da ys, #14 Gabapentin (Gabapentin) 600 Mg Tablet, 600 MG PO TID for anxiety for 7 Days, #21 Potassium Gluconate (Potassium) 99 Mg Tablet, 99 MG PO DAILY, (Reported) Prazosin Hcl (Prazosin HCl) 1 Mg Capsule, 1 MG PO QHS for nightmares for 7 Days, #7 Quetiapine Fumarate (Seroquel) 50 Mg Tablet, 50 MG PO QPM for mood for 7 Days, #7 Scheduled PRN Albuterol Sulfate (Proair Hfa) 8.5 Gm Hfa.aer.ad, 2 PUFF INH QID PRN for SHORTNESS OF BREATH, (Reported) Trazodone HCl (Trazodone HCl) 50 Mg Tablet, 50 MG PO QHS PRN for SLEEP, #10 Allergies Coded Allergies: Iodinated Contrast Media (Verified Allergy, Intermediate, HIVES, 02/14/19) Hives latex (Verified Allergy, Intermediate, HIVES, 02/14/19) ANGELIKA Barker DO Jun 05, 2019 14:20
[2019-06-06] MEDS ORDERED: INFLUENZA QUADRIVALENT PF VACCINE 0.5ML SYRINGE (90686) IM ONE (09:00)
== END 2019-06-05 15:03 | disposition home or self-care (01) | DRG 753 ==
LOC: M ED 17:22 → M ED INP 06-04 12:36 → M PSY 06-04 14:02
PROVIDERS: ADMIT Psychiatry & Neurology Addiction Medicine; ATTEND Psychiatry & Neurology Addiction Medicine
DX: F31.9 Bipolar disorder, unspecified (principal); R45.851 Suicidal ideations; Z79.899 Other long term (current) drug therapy; Z91.041 Radiographic dye allergy status; Z91.040 Latex allergy status; F17.200 Nicotine dependence, unspecified, uncomplicated; Z98.84 Bariatric surgery status

== ENCOUNTER → 2023-01-18 | Outpatient (CLI) | payer OTHER ==
[~2023-01-18] MED LIST changes: -CALC500T44 PO; -CYTO100T PO; +CYTO1TAB2 PO; +DEPA1TAB PO; -HM P99TA PO; -LATU40TA PO; +LATU40TA2 PO; +OYST500T92 PO; +POTA99TA14 PO; +TIZA10TA PO; -TIZA4TAB4 PO
[2023-01-18 13:44] LABS: HEMATOCRIT 27.6 % (36.0-47.0)
[2023-01-18 13:46] LABS: PERCENT SATURATION 2.1 % (13.2-45.0)
[2023-01-18 14:16] LABS: HEMOGLOBIN 7.1 g/dl (12.0-15.5); MEAN CORPUSCULAR HEMOGLOBIN 17.8 pg (27.0-33.0); MEAN CORPUSCULAR HGB CONC 26.6 g/dl (32.0-36.5); MEAN CORPUSCULAR VOLUME 66.9 fl (80.0-96.0); PLATELET COUNT, AUTOMATED 362 10^3/uL (150-450); RED BLOOD COUNT 3.99 10^6/uL (4.00-5.40); WHITE BLOOD COUNT 5.9 10^3/uL (4.0-10.0)
[2023-01-18 14:31] LABS: HEMATOCRIT 27.6 % (36.0-47.0)
== END ==
LOC: M PLALAB 09:46
PROVIDERS: ATTEND Internal Medicine Hematology
DX: D50.9 Iron deficiency anemia, unspecified (principal)

== ENCOUNTER 2023-01-21 10:54 | Outpatient (CLI) | payer OTHER ==
[~2023-01-21] VITALS: Ht 170.2 cm; Wt 92.2 kg
[~2023-01-21 10:54] MED LIST changes: +ALBUTEROL SULFATE 2.5MG/0.5ML INH NEB SOLN INH PRN; +EPINEPHrine INJ 1 MG/ML 1ML AMP IM PRN; +diphenhydrAMINE 50MG/ML VIAL IV PRN; +methylPREDNISolone 125MG 2ML VIAL IV PRN
[2023-01-21 11:15] VITALS: BP 137/63; O2SAT 100
[2023-01-21] MEDS ORDERED: NS 1,000 ML IV SCH (11:40)
[2023-01-21] MEDS ORDERED: IRON SUCROSE 200 MG in NS 100 ML OVER 1 HR IV ONE (11:45)
[2023-01-21 13:25] VITALS: BP 118/63; O2SAT 97
== END 2023-01-21 13:30 | disposition home or self-care (01) ==
LOC: M INFU 10:54
PROVIDERS: ATTEND Internal Medicine Hematology
DX: D50.9 Iron deficiency anemia, unspecified (principal); Z91.041 Radiographic dye allergy status; Z91.040 Latex allergy status
CPT/HCPCS: 96365; J1756

== ENCOUNTER 2023-01-28 12:03 | Outpatient (CLI) | payer OTHER ==
[~2023-01-28] VITALS: Ht 170.2 cm; Wt 92.2 kg
[2023-01-28 11:55] VITALS: BP 133/80; O2SAT 99
[2023-01-28] MEDS ORDERED: NS 1,000 ML IV SCH (12:20)
[2023-01-28] MEDS ORDERED: IRON SUCROSE 200 MG in NS 100 ML OVER 1 HR IV ONE ×4 (12:30)
[2023-01-28 13:55] VITALS: BP 121/73; O2SAT 98
== END 2023-01-28 13:55 ==
LOC: M INFU 12:03
PROVIDERS: ATTEND Internal Medicine Hematology
DX: D50.9 Iron deficiency anemia, unspecified (principal); Z91.041 Radiographic dye allergy status; Z91.040 Latex allergy status
CPT/HCPCS: 96365; J1756

== ENCOUNTER 2023-02-04 12:40 | Outpatient (CLI) | payer OTHER ==
[~2023-02-04] VITALS: Ht 170.2 cm; Wt 90.0 kg
[2023-02-04 12:40] VITALS: BP 119/69; O2SAT 99
[~2023-02-04 12:40] MED LIST changes: +IRON SUCROSE 200 MG in NS 100 ML OVER 1 HR IV ONE; +NS 1,000 ML IV SCH
[2023-02-04 14:25] VITALS: BP 123/59; O2SAT 97
== END 2023-02-04 14:25 | disposition home or self-care (01) ==
LOC: M INFU 12:40
PROVIDERS: ATTEND Internal Medicine Hematology
DX: D50.9 Iron deficiency anemia, unspecified (principal); Z91.040 Latex allergy status; Z91.041 Radiographic dye allergy status
CPT/HCPCS: 96365; J1756

== ENCOUNTER 2023-02-11 11:20 | Outpatient (CLI) | payer OTHER ==
[~2023-02-11] VITALS: Ht 170.2 cm; Wt 85.9 kg
[~2023-02-11 11:20] MED LIST changes: -IRON SUCROSE 200 MG in NS 100 ML OVER 1 HR IV ONE; -NS 1,000 ML IV SCH
[2023-02-11] MEDS ORDERED: NS 1,000 ML IV SCH (11:35)
[2023-02-11] MEDS ORDERED: IRON SUCROSE 200 MG in NS 100 ML OVER 1 HR IV ONE (11:45)
[2023-02-11 11:52] VITALS: BP 138/97; O2SAT 100
[2023-02-11 13:15] VITALS: BP 113/68; O2SAT 98
== END 2023-02-11 13:15 | disposition home or self-care (01) ==
LOC: M INFU 11:20
PROVIDERS: ATTEND Internal Medicine Hematology
DX: D50.9 Iron deficiency anemia, unspecified (principal); Z91.040 Latex allergy status; Z91.041 Radiographic dye allergy status
CPT/HCPCS: 96365; J1756

== ENCOUNTER 2023-02-18 12:30 | Outpatient (CLI) | payer OTHER ==
[~2023-02-18] VITALS: Ht 165.1 cm; Wt 92.2 kg
[2023-02-18] MEDS ORDERED: NS 1,000 ML IV SCH (12:40)
[2023-02-18 12:41] VITALS: BP 144/96; O2SAT 99
[2023-02-18] MEDS ORDERED: IRON SUCROSE 200 MG in NS 100 ML OVER 1 HR IV ONE (12:45)
[2023-02-18 14:27] VITALS: BP 137/76; O2SAT 97
== END 2023-02-18 14:30 | disposition home or self-care (01) ==
LOC: M INFU 12:30
PROVIDERS: ATTEND Internal Medicine Hematology
DX: D50.9 Iron deficiency anemia, unspecified (principal); Z91.041 Radiographic dye allergy status; Z91.040 Latex allergy status
CPT/HCPCS: 96365; J1756

== ENCOUNTER 2023-02-25 12:15 | Outpatient (CLI) | payer OTHER ==
[2023-02-25 12:15] VITALS: BP 109/68; O2SAT 98
[2023-02-25] MEDS ORDERED: IRON SUCROSE 200 MG in NS 100 ML OVER 1 HR IV ONE (12:30)
[2023-02-25] MEDS ORDERED: NS 1,000 ML IV SCH (12:30)
[2023-02-25 13:00] VITALS: BP 109/68; O2SAT 98
== END 2023-02-25 13:00 ==
LOC: M INFU 12:15
PROVIDERS: ATTEND Internal Medicine Hematology
DX: D50.9 Iron deficiency anemia, unspecified (principal); Z91.040 Latex allergy status; Z91.041 Radiographic dye allergy status
CPT/HCPCS: 96365; J1756

== ENCOUNTER 2023-03-04 11:35 | Outpatient (CLI) | payer OTHER ==
[~2023-03-04] VITALS: Ht 165.1 cm; Wt 93.0 kg
[2023-03-04 11:35] VITALS: BP 125/86; O2SAT 98
[~2023-03-04 11:35] MED LIST changes: +IRON SUCROSE 200 MG in NS 100 ML IV ONE; +NS 1,000 ML IV SCH
[2023-03-04 13:19] VITALS: BP 123/72; O2SAT 97
== END 2023-03-04 13:20 | disposition home or self-care (01) ==
LOC: M INFU 11:35
PROVIDERS: ATTEND Internal Medicine Hematology
DX: D50.9 Iron deficiency anemia, unspecified (principal); Z91.040 Latex allergy status; Z91.041 Radiographic dye allergy status
CPT/HCPCS: 96365; J1756

== ENCOUNTER → 2023-08-10 | Outpatient (REF) ==
[~2023-08-10] MED LIST changes: -ALBUTEROL SULFATE 2.5MG/0.5ML INH NEB SOLN INH PRN; -EFFE37.5 PO; +EFFE37.52 PO; -EPINEPHrine INJ 1 MG/ML 1ML AMP IM PRN; -IRON SUCROSE 200 MG in NS 100 ML IV ONE; -NS 1,000 ML IV SCH; -diphenhydrAMINE 50MG/ML VIAL IV PRN; -methylPREDNISolone 125MG 2ML VIAL IV PRN
== END ==
LOC: M PLAIMG 13:32
PROVIDERS: ATTEND Internal Medicine
DX: R52 Pain, unspecified (principal); M51.36 Other intervertebral disc degeneration, lumbar region; M51.37 Other intervertebral disc degeneration, lumbosacral region; M19.011 Primary osteoarthritis, right shoulder

== ENCOUNTER → 2023-11-11 | Outpatient (CLI) | payer MEDICAID, OTHER ==
[~2023-11-11] MED LIST changes: +ACET650T15 PO; +CYCL5TAB; +THIA100TA PO; +TIZA10TA
== END ==
LOC: M ONCR 13:02
PROVIDERS: ATTEND General Practice
DX: D32.0 Benign neoplasm of cerebral meninges (principal); F17.210 Nicotine dependence, cigarettes, uncomplicated; Z80.41 Family history of malignant neoplasm of ovary; Z88.8 Allergy status to other drugs, medicaments and biological substances; Z90.49 Acquired absence of other specified parts of digestive tract; Z91.040 Latex allergy status; Z98.84 Bariatric surgery status

== ENCOUNTER → 2024-01-04 | Outpatient (REF) | LOC: M RAD 13:02 | PROVIDERS: ATTEND Internal Medicine | DX: M25.569 Pain in unspecified knee (principal); M16.0 Bilateral primary osteoarthritis of hip ==

== ENCOUNTER → 2024-03-08 | Outpatient (REF) ==
[~2024-03-08] MED LIST changes: +BUDE10.7; +CRAN500C11 PO; +CYAN1000VL; +CYTO100T2 PO; -CYTO1TAB2 PO; +GABA-1490 PO; -GABA600T4 PO; +LORA-1041; +RIZA10TA58 PO; +[UNRECOGNIZED DRUG - OTHER] PO
== END ==
LOC: M LAB LCGH 09:02
PROVIDERS: ATTEND Emergency Medicine
DX: Z13.9 Encounter for screening, unspecified (principal)

== ENCOUNTER → 2024-03-14 | Outpatient (CLI) | payer OTHER ==
[~2024-03-14] MED LIST changes: -CRAN500C11 PO; +CVS500CA5 PO; +DEXA4TA PO; +FIOR1CAP PO
== END ==
LOC: M ONCR 14:27
PROVIDERS: ATTEND General Practice
DX: R51.9 Headache, unspecified (principal); D32.0 Benign neoplasm of cerebral meninges; F17.210 Nicotine dependence, cigarettes, uncomplicated; Z91.040 Latex allergy status; Z88.8 Allergy status to other drugs, medicaments and biological substances; Z79.899 Other long term (current) drug therapy

== ENCOUNTER → 2024-04-26 | Outpatient (REF) | payer OTHER ==
[~2024-04-26] MED LIST changes: -CYCL5TAB; +CYCL5TAB4
[2024-05-06 23:28] LABS: RENIN LEVEL 34.04 ng/mL/h (0.25-5.82)
== END ==
LOC: M LAB REF 16:58
PROVIDERS: ATTEND Internal Medicine Nephrology
DX: E87.6 Hypokalemia (principal)

== ENCOUNTER → 2024-05-08 | Outpatient (CLI) | payer OTHER ==
[~2024-05-08] MED LIST changes: +PROHANCE 279.3MG/ML 15ML VIAL As Ordered ONE
== END ==
LOC: M RAD 15:00
PROVIDERS: ATTEND General Practice
DX: D32.0 Benign neoplasm of cerebral meninges (principal)
CPT/HCPCS: 70553; A9576

== ENCOUNTER → 2024-05-15 | Outpatient (CLI) | payer OTHER ==
[~2024-05-15] MED LIST changes: -PROHANCE 279.3MG/ML 15ML VIAL As Ordered ONE
== END ==
LOC: M ONCR 13:10
PROVIDERS: ATTEND General Practice
DX: D32.0 Benign neoplasm of cerebral meninges (principal); F17.210 Nicotine dependence, cigarettes, uncomplicated; Z91.040 Latex allergy status; Z79.899 Other long term (current) drug therapy

== ENCOUNTER → 2024-09-13 | Outpatient (REF) | payer OTHER, MEDICAID | LOC: M LAB REF 16:55 | PROVIDERS: ATTEND Internal Medicine Nephrology | DX: E87.6 Hypokalemia (principal) ==